=== PATIENT | male | born 1990 | race Caucasian/White ===

== ENCOUNTER 2016-12-27 08:53 | Emergency (ER) | payer OTHER ==
[~2016-12-27] VITALS: Ht 179.1 cm; Wt 103.0 kg
[~2016-12-27 08:53] MED LIST: IBUP-1050 PO
[2016-12-27 08:56] VITALS: TEMP 37; Ht 179.1 cm; Wt 103.0 kg
[2016-12-27] MEDS ORDERED: ONDANSETRON INJ 2 MG/ML 2 ML VIAL IV STA ×2 (09:08→10:02)
[2016-12-27] MEDS ORDERED: KETOROLAC TROMETHAMINE 30 MG/ML VIAL IV STA (09:08)
[2016-12-27] MEDS ORDERED: SODIUM CHLORIDE 0.9% 1000ML 1,000 ML IV STA (09:08)
[2016-12-27 09:25] LABS: BASO % 0.4 %; BASO ABS # 0.03 K/uL (0-0.2); COMPLETE YES; EOS % 0.8 %; HEMATOCRIT 49.5 % (42-52); IG% 0.5 %; LYMPH % 25.6 %; MEAN CELL VOLUME 87.6 fL (80-100); MEAN CORPUSCULAR HEMOGLOBIN 30.3 pg (25-34); MEAN CORPUSCULAR HGB CONC 34.5 g/dl (32-36); MONO % 9.7 %; PLATELET COUNT 251 K/uL (130-400); RED BLOOD COUNT 5.65 M/uL (4.7-6.1); WHITE BLOOD COUNT 7.81 K/uL (4.8-10.8)
[2016-12-27 09:43] LABS: BUN/CREATININE RATIO 15.3 (10-20); CALCIUM 9.4 mg/dl (8.5-10.1)
--- NOTE | 2016-12-27 10:39 | DIAGNOSTIC IMAGING REPORT ---
PA CHEST RADIOGRAPH AND UPRIGHT AND SUPINE AP RADIOGRAPHS OF THE ABDOMEN CLINICAL HISTORY: Left lower abdominal pain and cramping. Nausea. COMPARISON STUDY: No previous studies for comparison. FINDINGS: Lung volumes are normal. Lungs are clear. There is no pneumothorax or pleural effusion. Cardiac size is normal. Mediastinal contours are normal. There is no evidence of pulmonary edema. No free air is present. Bowel gas pattern is normal. A 2 mm left pelvic calcification is noted. Skeletal structures are unremarkable. IMPRESSION: 1. No free air or evidence of bowel obstruction. 2. 2 mm left pelvic calcification. Statistically, this represents a phlebolith although a distal left ureteral calculus could appear similar. 3. No acute cardiopulmonary findings. Electronically signed by: Primitivo Santoro M.D. 12/27/2016 10:38 AM Dictated Date/Time: 12/27/2016 10:36 AM
[2016-12-27 11:55] LABS: URINE APPEARANCE CLEAR (CLEAR); URINE BILIRUBIN NEG (NEG); URINE COLOR YELLOW; URINE EPITHELIAL CELL AUTO 0-5 /lpf (0-5); URINE NITRITE NEG (NEG); URINE SPECIFIC GRAVITY 1.018 (1.000-1.030); UROBILINOGEN NEG (NEG); ZZUR CULT IF INDIC CLEAN CATCH NO
[2016-12-27 12:07] LABS: MANUAL MICROSCOPIC REQUIRED? NO; REVIEW REQ? NO
--- NOTE | 2016-12-27 12:32 | DIAGNOSTIC IMAGING REPORT ---
CT OF THE ABDOMEN AND PELVIS WITHOUT CONTRAST CLINICAL HISTORY: Left lower quadrant abdominal pain. COMPARISON STUDY: Abdominal series and chest radiograph performed earlier today. TECHNIQUE: Axial images of the abdomen and pelvis were obtained without IV contrast. Images were reviewed in the axial, sagittal, and coronal planes. FINDINGS: No renal, ureteral or bladder calculi are present. There is no hydronephrosis or hydroureter. A left pelvic calcification represents a phlebolith. Evaluation of the remainder of the abdomen and pelvis is suboptimal on this unenhanced exam. Unenhanced images of liver, spleen, adrenal glands and pancreas are normal. There is no biliary or pancreatic ductal dilatation. There is no evidence for a bowel obstruction. The caliber of small and large bowel are normal. The appendix is normal. There is colonic diverticulosis without evidence for acute diverticulitis. There is no lymphadenopathy. Skeletal structures are unremarkable. IMPRESSION: 1. No urinary calculi or hydronephrosis. 2. No acute process within the abdomen or pelvis on unenhanced exam. 3. Colonic diverticulosis without evidence for acute diverticulitis. Electronically signed by: Priimtivo Santoro M.D. 12/27/2016 12:31 PM Dictated Date/Time: 12/27/2016 12:27 PM
[2016-12-27 12:43] VITALS: BP 129/74; PULSE 73; O2SAT 98
[2016-12-27] MEDS ORDERED: ONDA4TAB46 PO (13:03)
--- NOTE | 2016-12-27 14:32 | EMERGENCY ROOM VISIT NOTE ---
History Report prepared by Donaibangela: Gene Wild Under the Supervision of: Dr. Miguel A Sun D.O. First contact with patient: 08:59 Chief Complaint: ABDOMINAL PAIN Stated Complaint: ABD. CRAMPING/DISCOMFORT, NAUSEA X 3 DAYS Nursing Triage Summary: Pt states Friday he started feeling cramping in lower abdomen, got worse Friday and "has been consistent since then with flare ups on the left side...weird bowel habits and nausea the past few days." History of Present Illness The patient is a 26 year old male who presents to the Emergency Room with complaints of persistent lower abdominal cramping for the past three days. The pain intermittently intensifies in the left lower quadrant. The patient also complains of severe nausea without vomiting. The patient was constipated for three days until yesterday. Yesterday he had a painful bowel movement. He had relief initially which did not last. The patient had 4-5 episodes of diarrhea yesterday. He hasn't had a bowel movement this morning. The patient has not had any blood in his stools. The patient still has his gallbladder and appendix. He does not know of any sick contacts or contacts with C. Diff. The patient has not been on antibiotics recently. 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 He has not traveled recently or drank from any streams. The patient denies any family history of inflammatory bowel disease. Patient denies headache, change in vision, fevers, chest pain, shortness of breath, pain with urination, and melena. Source of History: patient Onset: three days Position: abdomen (lower) Quality: cramping Timing: other (persistent) Associated Symptoms: + diarrhea, + nausea, No SOB, No chest pain, No fevers , No headache, No hematochezia, No melena, No urinary symptoms, No vomiting Review of Systems See HPI for pertinent positives & negatives. A total of 10 systems reviewed and were otherwise negative. Past Medical & Surgical Medical Problems: (1) Back strain Family History No pertinent family history Social History Smoking Status: Current Every Day Smoker Occupation Status: employed Current/Historical Medications Scheduled PRN Ibuprofen (Advil), 800 MG PO Q4H PRN for Pain Ondansetron Hcl (Zofran), 4 MG PO TID PRN for Nausea Allergies Coded Allergies: No Known Allergies (Unverified , 12/27/16) Physical Exam Vital Signs Date Time Temp Pulse Resp B/P Pulse Ox O2 Delivery O2 Flow Rate FiO2 12/27/16 12:43 73 15 129/74 98 Room Air 12/27/16 10:55 76 14 145/79 99 Room Air 12/27/16 08:56 37.0 94 17 159/105 99 Room Air Physical Exam GENERAL: Sitting up in bed, alert, well appearing, well nourished, no distress, non-toxic EYE EXAM: normal conjunctiva. OROPHARYNX: no exudate, no erythema, lips, buccal mucosa, and tongue normal and mucous membranes are moist NECK: supple, no nuchal rigidity, no adenopathy, non-tender LUNGS: Clear to auscultation. Normal chest wall mechanics HEART: no murmurs, S1 normal and S2 normal ABDOMEN: abdomen soft, non-tender, normo-active bowel sounds, no masses, no rebound or guarding. BACK: Back is symmetrical on inspection and there is no deformity, no midline tenderness, no CVA tenderness. SKIN: no rashes and no bruising UPPER EXTREMITIES: upper extremities are grossly normal. LOWER EXTREMITIES: No pitting edema. NEURO EXAM: Normal sensorium, cranial nerves II-XII grossly intact, normal speech, no gross weakness of arms, no gross weakness of legs. Gross sensation intact. Medical Decision & Procedures ER Provider Diagnostic Interpretation: Xray results per the radiologist and my interpretation. Other results have been interpreted by the radiologist and reviewed by me. PA CHEST RADIOGRAPH AND UPRIGHT AND SUPINE AP RADIOGRAPHS OF THE ABDOMEN CLINICAL HISTORY: Left lower abdominal pain and cramping. Nausea. COMPARISON STUDY: No previous studies for comparison. FINDINGS: Lung volumes are normal. Lungs are clear. There is no pneumothorax or pleural effusion. Cardiac size is normal. Mediastinal contours are normal. There is no evidence of pulmonary edema. No free air is present. Bowel gas pattern is normal. A 2 mm left pelvic calcification is noted. Skeletal structures are unremarkable. IMPRESSION: 1. No free air or evidence of bowel obstruction. 2. 2 mm left pelvic calcification. Statistically, this represents a phlebolith although a distal left ureteral calculus could appear similar. 3. No acute cardiopulmonary findings. Electronically signed by: Primitivo Santoro M.D. 12/27/2016 10:38 AM Dictated Date/Time: 12/27/2016 10:[address] OF THE ABDOMEN AND PELVIS WITHOUT CONTRAST CLINICAL HISTORY: Left lower quadrant abdominal pain. COMPARISON STUDY: Abdominal series and chest radiograph performed earlier today. TECHNIQUE: Axial images of the abdomen and pelvis were obtained without IV contrast. Images were reviewed in the axial, sagittal, and coronal planes. FINDINGS: No renal, ureteral or bladder calculi are present. There is no hydronephrosis or hydroureter. A left pelvic calcification represents a phlebolith. Evaluation of the remainder of the abdomen and pelvis is suboptimal on this unenhanced exam. Unenhanced images of liver, spleen, adrenal glands and pancreas are normal. There is no biliary or pancreatic ductal dilatation. There is no evidence for a bowel obstruction. The caliber of small and large bowel are normal. The appendix is normal. There is colonic diverticulosis without evidence for acute diverticulitis. There is no lymphadenopathy. Skeletal structures are unremarkable. IMPRESSION: 1. No urinary calculi or hydronephrosis. 2. No acute process within the abdomen or pelvis on unenhanced exam. 3. Colonic diverticulosis without evidence for acute diverticulitis. Electronically signed by: Primitivo Santoro M.D. 12/27/2016 12:31 PM Dictated Date/Time: 12/27/2016 12:27 PM Laboratory Results 12/27/16 09:05 Red Blood Count 5.65, Mean Corpuscular Volume 87.6, Mean Corpuscular Hemoglobin 30.3, Mean Corpuscular Hemoglobin Concent 34.5, Mean Platelet Volume 10.0, Neutrophils (%) (Auto) 63.0, Lymphocytes (%) (Auto) 25.6, Monocytes (%) (Auto) 9.7, Eosinophils (%) (Auto) 0.8, Basophils (%) (Auto) 0.4, Neutrophils # (Auto) 4.92, Lymphocytes # (Auto) 2.00, Monocytes # (Auto) 0.76, Eosinophils # (Auto) 0.06, Basophils # (Auto) 0.03 12/27/16 09:05 Test 12/27/16 09:05 12/27/16 11:15 White Blood Count 7.81 K/uL (4.8-10.8) Red Blood Count 5.65 M/uL (4.7-6.1) Hemoglobin 17.1 g/dL (14.0-18.0) Hematocrit 49.5 % (42-52) Mean Corpuscular Volume 87.6 fL (80-100) Mean Corpuscular Hemoglobin 30.3 pg (25-34) Mean Corpuscular Hemoglobin Concent 34.5 g/dl (32-36) Platelet Count 251 K/uL (130-400) Mean Platelet Volume 10.0 fL (7.4-10.4) Neutrophils (%) (Auto) 63.0 % Lymphocytes (%) (Auto) 25.6 % Monocytes (%) (Auto) 9.7 % Eosinophils (%) (Auto) 0.8 % Basophils (%) (Auto) 0.4 % Neutrophils # (Auto) 4.92 K/uL (1.4-6.5) Lymphocytes # (Auto) 2.00 K/uL (1.2-3.4) Monocytes # (Auto) 0.76 K/uL (0.11-0.59) Eosinophils # (Auto) 0.06 K/uL (0-0.5) Basophils # (Auto) 0.03 K/uL (0-0.2) RDW Standard Deviation 41.4 fL (36.4-46.3) RDW Coefficient of Variation 13.0 % (11.5-14.5) Immature Granulocyte % (Auto) 0.5 % Immature Granulocyte # (Auto) 0.04 K/uL (0.00-0.02) Anion Gap 8.0 mmol/L (3-11) Est Creatinine Clear Calc Drug Dose 135.7 ml/min Estimated GFR () 119.9 Estimated GFR (Non- 103.4 BUN/Creatinine Ratio 15.3 (10-20) Calcium Level 9.4 mg/dl (8.5-10.1) Total Bilirubin 0.7 mg/dl (0.2-1) Direct Bilirubin 0.1 mg/dl (0-0.2) Aspartate Amino Transf (AST/SGOT) 13 U/L (15-37) Alanine Aminotransferase (ALT/SGPT) 36 U/L (12-78) Alkaline Phosphatase 86 U/L (45-117) Total Protein 7.8 gm/dl (6.4-8.2) Albumin 4.5 gm/dl (3.4-5.0) Lipase 144 U/L (73-393) Urine Color YELLOW Urine Appearance CLEAR (CLEAR) Urine pH 5.0 (4.5-7.5) Urine Specific [place] 1.018 (1.000-1.030) Urine Protein NEG (NEG) Urine Glucose (UA) NEG (NEG) Urine Ketones NEG (NEG) Urine Occult Blood NEG (NEG) Urine Nitrite NEG (NEG) Urine Bilirubin NEG (NEG) Urine Urobilinogen NEG (NEG) Urine Leukocyte Esterase NEG (NEG) Urine WBC (Auto) 0 /hpf (0-5) Urine RBC (Auto) 0-4 /hpf (0-4) Urine Hyaline Casts (Auto) 0 /lpf (0-5) Urine Epithelial Cells (Auto) 0-5 /lpf (0-5) Urine Bacteria (Auto) NEG (NEG) Laboratory results per my review. Medications Administered Medications (Trade) Dose Ordered Sig/Destinee Route Start Time Stop Time Status Last Admin Dose Admin Sodium Chloride (Nss 1000ml) 1,000 ml @ 999 mls/hr Q1H1M STAT IV 12/27/16 09:08 12/27/16 10:08 DC 12/27/16 09:18 999 MLS/HR Ondansetron HCl (Zofran Inj) 4 mg NOW STAT IV 12/27/16 09:08 12/27/16 09:09 DC 12/27/16 09:15 4 MG Ketorolac Tromethamine (Toradol Inj) 30 mg NOW STAT IV 12/27/16 09:08 12/27/16 09:09 DC 12/27/16 09:17 30 MG Ondansetron HCl (Zofran Inj) 4 mg NOW STAT IV 12/27/16 10:02 12/27/16 10:03 DC 12/27/16 10:27 4 MG ED Course ED COURSE: Vital signs were reviewed and were normal. The patients medical record was reviewed The above diagnostic studies were performed and reviewed. ED treatments and interventions as stated above. 0903: The patient was evaluated in room A11b. A complete history and physical examination was performed. 0908: Zofran 4 mg IV, NSS 1000 ml @ 999 mls/hr. 1002: Zofran 4 mg IV. 1150: The patient is feeling better. 1305: Upon reevaluation, the patient is ready for discharge.I discussed my findings with the patient and he understands and agrees with the treatment plan. Based on the patients age, coexisting illnesses, exam and lab findings the decision to treat as an outpatient was made. The patient remained stable while under my care. The patient appeared well at the time of discharge. Medical Decision Differential diagnoses includes but is not limited to gastritis, peptic ulcer disease, GERD, gallbladder disease, pancreatitis, small bowel obstruction, acute coronary syndrome, pericarditis, ischemic bowel, irritable bowel disease, irritable bowel syndrome, appendicitis, diverticulitis, malignancy, hernia, urinary tract infection, torsion, [/ectopic (if female)], perforation, trauma, infectious. Patient is a 26-year-old male who presents the ER for nausea associated with lower abdominal cramping with intermittent sharp stabbing pains in the left lower quadrant. Last bowel movement was yesterday. No fevers. No previous abdominal surgeries. No dysuria, urgency or frequency. Obstruction series was unremarkable with exception of a possible calcification in left lower quadrant. CBC along with BMP, LFTs, bilirubin and UA were negative. Urine dip did have trace blood. With the trace blood I did perform a CT of the abdomen and pelvis for concern for stone which was negative. Official UA was negative as well. Patient was given multiple doses Zofran and Toradol along with normal saline. He felt significant better. He is discharged with prescription for Zofran. I do believe that this is likely secondary to a viral GI bug. Discussed with Pt concerning signs and symptoms to watch out for. Pt was instructed to follow up with their PCP and discussed with the patient their option to return to the ED at anytime for persistent or worsening symptoms. The appropriate anticipatory guidance and out-patient management, including indications for return to the emergency department, were explained at length to the patient and understood. Impression Primary Impression: Lower abdominal pain Scribe Attestation The scribe's documentation has been prepared under my direction and personally reviewed by me in its entirety. I confirm that the note above accurately reflects all work, treatment, procedures, and medical decision making performed by me. Departure Information Dispostion Home / Self-Care Prescriptions Ondansetron Hcl (ZOFRAN) 4 Mg Tab 4 MG PO TID Y for Nausea, #20 TAB Prov: Miguel A 12/27/16 Referrals Sav Maravilla M.D. (PCP) Forms HOME CARE DOCUMENTATION FORM, IMPORTANT VISIT INFORMATION Patient Instructions Abdominal Pain - [facility], My [facility] Additional Instructions Please follow up with your primary care doctor with in the next 24 hours. Any worsening of your symptoms, please return to the ED immediately. This includes fevers greater than 100.4, worsening pain, persistent nausea vomiting, bloody stool, or any other concerning signs or symptoms from your stand point. Please take Zofran as needed for nausea.
== END 2016-12-27 13:11 | disposition home or self-care (01) ==
LOC: C.EDB 08:54 → C.EDA 13:11
DX: R10.30 Lower abdominal pain, unspecified (principal); F17.200 Nicotine dependence, unspecified, uncomplicated

== ENCOUNTER → 2017-04-01 | Outpatient (CLI) | payer OTHER ==
[~2017-04-01] MED LIST changes: +AMOX500C3 PO; +MELO15TA4 PO; +ONDA4TAB46 PO; +PARO1TAB27 PO; +PRLSR20 PO; +PRX/40 PO; +TRAM-10 PO
== END | disposition home or self-care (01) ==
LOC: C.LAB 17:09
PROVIDERS: ATTEND Family Medicine
DX: F41.1 Generalized anxiety disorder (principal)

== ENCOUNTER → 2017-06-20 | Outpatient (CLI) | payer OTHER ==
[2017-06-20 13:10] LABS: BASO % 0.2 %; BASO ABS # 0.02 K/uL (0-0.2); COMPLETE YES; IG% 0.3 %; LYMPH ABS # 2.66 K/uL (1.2-3.4); MEAN CELL VOLUME 88.8 fL (80-100); MEAN CORPUSCULAR HEMOGLOBIN 30.4 pg (25-34); MEAN CORPUSCULAR HGB CONC 34.3 g/dl (32-36); MEAN PLATELET VOLUME 9.6 fL (7.4-10.4); MONO % 8.7 %; NEUT % 58.8 %; PLATELET COUNT 231 K/uL (130-400); RED BLOOD COUNT 5.29 M/uL (4.7-6.1); WHITE BLOOD COUNT 8.58 K/uL (4.8-10.8)
[2017-06-20 13:41] LABS: BLOOD UREA NITROGEN 15 mg/dl (7-18); BUN/CREATININE RATIO 17.1 (10-20); CALCIUM 9.1 mg/dl (8.5-10.1); CARBON DIOXIDE 28 mmol/L (21-32); CHLORIDE 105 mmol/L (98-107); CREATININE 0.85 mg/dl (0.60-1.40); GLUCOSE 89 mg/dl (70-99); POTASSIUM 4.4 mmol/L (3.5-5.1); SODIUM 138 mmol/L (136-145)
== END | disposition home or self-care (01) ==
LOC: C.LAB 11:38
PROVIDERS: ATTEND Family Medicine
DX: G25.0 Essential tremor (principal)

== ENCOUNTER 2017-08-05 01:12 | Emergency (ER) | payer OTHER ==
[~2017-08-05] VITALS: Ht 180.3 cm; Wt 115.2 kg
[~2017-08-05 01:12] MED LIST changes: -AMOX500C3 PO; -MELO15TA4 PO; -ONDA4TAB46 PO; -PARO1TAB27 PO; -PRLSR20 PO; -PRX/40 PO; -TRAM-10 PO
[2017-08-05 01:19] VITALS: TEMP 36.7; Ht 180.3 cm; Wt 115.2 kg
[2017-08-05] MEDS ORDERED: AMOXICILLIN 250 MG CAP PO STA (01:30)
[2017-08-05] MEDS ORDERED: TRAMADOL HCL 50 MG HOME PACK PO ONE (01:30)
[2017-08-05] MEDS ORDERED: TRAM-10 PO (01:34)
[2017-08-05] MEDS ORDERED: AMOX500C3 PO (01:35)
[2017-08-05] MEDS ORDERED: PRX/40 PO (01:41)
[2017-08-05] MEDS ORDERED: MELO15TA4 PO (01:41)
[2017-08-05 01:46] VITALS: BP 138/96; PULSE 80; O2SAT 100
--- NOTE | 2017-08-05 01:49 | EMERGENCY ROOM VISIT NOTE ---
History First contact with patient: :22 Chief Complaint: DENTAL PAIN Stated Complaint: DENTAL/JAW PAIN X6 DAYS History of Present Illness The patient is a 27 year old male who presents to the Emergency Room with complaints of right lower dental pain that radiates to his jaw past few days. Patient also states he grinds his teeth. Patient is not seen a dentist in quite sometime. Pain currently 6 out of 10. Nothing makes it better or worse. He describes the pain as aching. It radiates to his jaw. He denies chest pain, dyspnea, fever, chills, headache, neck stiffness, sore throat, facial swelling, lightheadedness or dizziness. Review of Systems See HPI for pertinent positives & negatives. A total of 10 systems reviewed and were otherwise negative. Past Medical/Surgical History Medical Problems: (1) Back strain Arthritis Family History No pertinent family history Social History Smoking Status: Current Every Day Smoker Drug Use: none Occupation Status: employed Current/Historical Medications Scheduled Amoxicillin (Amoxil), 500 MG PO TID Meloxicam (Meloxicam), 15 MG PO DAILY Paroxetine (Paroxetine HCl), 40 MG PO DAILY Scheduled PRN Ibuprofen (Advil), 800 MG PO Q4H PRN for Pain Tramadol (Ultram), 1-2 TAB PO Q4H PRN for Pain Physical Exam Vital Signs Date Time Temp Pulse Resp B/P (MAP) Pulse Ox O2 Delivery O2 Flow Rate FiO2 08/05/17 01:19 36.7 80 18 171/80 100 Room Air Physical Exam VITALS: Vitals are noted on the nurse's note and reviewed by myself. Vital signs stable. GENERAL: Pleasant male, in no acute distress, nondiaphoretic, well-developed well-nourished. SKIN: The skin was without rashes, erythema, edema, or bruising. There is no tenting of the skin. Capillary reflex less than 2 seconds. HEAD: Normocephalic atraumatic. EARS: External auditory canals clear, tympanic membranes pearly valadez without erythema or effusion bilaterally. EYES: Pupils equal round and reactive to light and accommodation. Conjunctivae without injection, sclerae without icterus. Extraocular movements intact. NOSE: Patent, turbinates without inflammation or discharge. No sinus tenderness. MOUTH: Mucous membranes moist. No Lukas's angina Pharynx without erythema or exudate. Uvula midline. Airway patent. Tongue does not deviate. Dental exam: Dental decay to first molar right lower, no palpable abscess, overall dental hygiene fair. NECK: Supple without nuchal rigidity. No lymphadenopathy. No thyromegaly. Cervical spine is nontender. No JVD. No meningeal signs HEART: Regular rate and rhythm without murmurs gallops or rubs. LUNGS: Clear to auscultation bilaterally without wheezes, rales or rhonchi. No dullness to percussion. No retractions or accessory muscle use. MUSCULOSKELETAL: No muscle atrophy, erythema, or edema noted. NEURO: Patient was alert and oriented to person place and time. Normal sensation to light and sharp touch. No focal neurological deficits. Medical Decision & Procedures ED Course Prior records reviewed and summarized as above. Triage Nursing notes reviewed. Additional history obtained from friend The patient's history was concerning for dental pain Differential diagnosis: Etiologies such as cellulitis, abscess, gingivitis, dental caries, Bruxism, Lukas angina, tic douloureux as well as others were entertained.. Physical examination: The physical examination was consistent with dental pain from dental caries ER treatment provided: Amoxicillin, Ultram On reassessment the patient felt better. Diagnostics interpreted by me: Deferred This appears to be dental caries. Patient had no signs of abscess. No signs of Lukas angina. He is well-appearing. He was counseled on proper dental hygiene and verbalized understanding of this. He was advised to get a mouthguard for his bruxism and see a dentist as soon as possible. He is advised to return to the ER immediately for facial swelling, fevers, worsening signs or symptoms or as needed. By the evaluation outlined above emergent etiologies such as abscess, Lukas angina as well as others were deemed relatively unlikely. The pt informed about the findings as listed above. All questions were answered and pleased with the treatment. Return instructions were outlined and the patient was discharged in stable condition. Outpatient prescription management: Amoxicillin, Ultram Referral: The patient was referred back to dentist for follow-up in 2 to 3 days for a recheck of the current condition. Medical Decision As above [place] Drug Monitoring Program Search Results: patient reviewed within database, no issues identified Medication Reconcilliation Current Medication List: was personally reviewed by me Blood Pressure Screening Patient's blood pressure: Elevated blood pressure Blood pressure disposition: Elevated BP felt to be situational Impression Primary Impression: Tooth pain with chewing Additional Impressions: Dental caries Bruxism Departure Information Dispostion Home / Self-Care Condition GOOD Prescriptions Amoxicillin (AMOXIL) 500 Mg Cap 500 MG PO TID for 10 Days, #30 CAP Prov: Eva Park PA-C 08/05/17 Tramadol (Ultram) 50 Mg Tab 1-2 TAB PO Q4H Y for Pain, #14 TAB For Initial Treatment Prov: Eva Park PA-C 08/05/17 Forms HOME CARE DOCUMENTATION FORM, IMPORTANT VISIT INFORMATION Patient Instructions Bruxism Teeth Grind, [facility], ED [facility] Additional Instructions Amoxicillin 500mg: Take one pill 3 times daily for 10 days for your infection. All antibiotics can cause diarrhea. If this occurs and you feel worse or it does not resolve in 1-2 days follow up with your doctor or return to the Emergency Department as this could be signs of serious underlying problems. Any medication can cause an allergic reaction, stop the pills immediately and return to the ER for rash, hives, breathing difficulties, or swelling. Recommend that you wear a mouthguard at night. You can by this at [facility] or [facility]. Ultram 50 mg: Take 1-2 pills every four hours for breakthrough pain. Avoid alcohol, operating machinery or dangerous equipment, working on ladders or roofs , DRIVING, or situations where being under the influence may be dangerous. It is recommended to use an [id number] stool softener such as Colace, 100mg twice daily while taking this medication to avoid constipation. Ibuprofen(Motrin, Advil) may be used for fever or pain. Use 600mg every six hours as needed. Take with food. Avoid using more than 2400mg in a 24 hour period. Do not use 2400mg per day for more than three consecutive days without physician direction. Prolonged inappropriate use can lead to stomach upset or ulcers. This medication can be taken if you need to drive, work, or perform activities which may be dangerous when taking narcotic pain medication. (AND/OR) Acetaminophen(Tylenol) may be used for fever or pain. Use 1000mg every six hours as needed. Avoid using more than 3000mg in a 24 hour period. This medication can be taken if you need to drive, work, or perform activities which may be dangerous when taking narcotic pain medication. [place] teeth twice a day, floss daily and do warm saltwater gargles 3 times a day. See a dentist as soon as possible for definitive care for your dental problem. Return to ER sooner for facial swelling, fever, redness, worsening signs or symptoms or as needed. Problem Qualifiers
== END 2017-08-05 01:48 | disposition home or self-care (01) ==
LOC: C.EDB 01:13
DX: K02.9 Dental caries, unspecified (principal); K08.89 Other specified disorders of teeth and supporting structures; M19.90 Unspecified osteoarthritis, unspecified site; F17.200 Nicotine dependence, unspecified, uncomplicated; Z79.899 Other long term (current) drug therapy

== ENCOUNTER 2017-09-03 07:45 | Emergency (ER) | payer OTHER ==
[~2017-09-03] VITALS: Ht 1196.3 cm; Wt 118.3 kg
[~2017-09-03 07:45] MED LIST changes: +MELO15TA4 PO; +PRX/40 PO; +TRAM-10 PO
[2017-09-03 07:49] VITALS: BP 137/76; PULSE 91; TEMP 37; O2SAT 100; Ht 1196.3 cm; Wt 118.3 kg
[2017-09-03] MEDS ORDERED: PRLSR20 PO (07:55)
[2017-09-03] MEDS ORDERED: PARO1TAB27 PO (07:55)
[2017-09-03] MEDS ORDERED: PROPARACAINE HCL 0.5% OP SOLN 15 ML BTL ONE (08:10)
--- NOTE | 2017-09-03 08:25 | EMERGENCY ROOM VISIT NOTE ---
ED Visit Note First contact with patient: 07:55 CHIEF COMPLAINT: Left eye redness and swelling since yesterday HISTORY OF PRESENT ILLNESS: Patient is a 27-year-old white male who presents to emergency department for evaluation of left eye pain, redness and drainage. He does wear corrective lenses, almost always wears his contact lenses. While wearing contact lenses yesterday, he noticed that his eye felt a little bit irritating. He removed his contact lenses when he got home last evening. When he woke up this morning, he noted redness in the eye, ongoing sense of irritation, tearing and had some yellow crusting. He has been wearing his glasses since. He has no symptoms in the right eye. He has not been ill with any recent cold or upper respiratory symptoms. He denies any foreign body sensation. No activities recently where he could've gotten something into his eye. REVIEW OF SYSTEMS: Review of systems as per HPI. All other systems reviewed were negative. At least 6 systems reviewed. PMH: Electronic medical records are reviewed and summarized as above/below. See Problem List. SOCIAL HISTORY: Patient lives at home. Smoker. He is employed. PHYSICAL EXAM: Vital Signs: Reviewed Nurse's notes. VISUAL ACUITY: 20/40 in the right eye, 20/200 in the left eye with old prescription glasses. GENERAL: Patient is a well-appearing 27-year-old white male who is awake and alert and in no acute distress. EYES: The pupils are round, equal, and react to light. EOMs are full. There is clear tearing from the left eye, which showed moderate conjunctival injection and inflammation. No chemosis. No foreign body was seen embedded in the cornea. The cornea was clear and no hyphema was seen. There was a small, linear area of fluorescein uptake central over the pupil. EMERGENCY DEPARTMENT COURSE: The patient was seen and examined as above. I was anesthetized with proparacaine drops to facilitate exam. He has some mild conjunctival injection and discharge, but does also have evidence for a small central corneal abrasion. Patient will be treated with Ciloxan drops, these were applied here in the emergency department. He was encouraged to wear his glasses for the next 3-5 days until his symptoms resolve. He was encouraged to come back to the emergency department to have diuresis sustained in 24-48 hours , certainly return sooner for any worsening symptoms. Differential diagnoses entertained included corneal foreign body, conjunctivitis , corneal abrasion, punctate keratitis, among others. Medication reconciliation: I attest that I have personally reviewed the patient' s current medication list. Blood pressure screening : Patient was found to have normal blood pressure on screening and does not require follow-up. Problem List Medical Problems: (1) Abdominal pain Status: Resolved (2) Back strain Status: Resolved (3) Bruxism Status: Chronic (4) Dental caries Status: Resolved (5) Generalized Anxiety Disorder Status: Chronic (6) Lower abdominal pain Status: Resolved (7) Tooth pain with chewing Status: Resolved Current/Historical Medications Scheduled Omeprazole (Prilosec), 20 MG PO DAILY Miscellaneous Medications Paroxetine (Paxil), 60 MG PO Allergies Coded Allergies: Buspirone (Verified Allergy, Intermediate, altered mental status, 09/03/17) Vital Signs Date Time Temp Pulse Resp B/P (MAP) Pulse Ox O2 Delivery O2 Flow Rate FiO2 09/03/17 07:49 37.0 91 18 137/76 100 Room Air Medications Administered Medications (Trade) Dose Ordered Sig/Destinee Route Start Time Stop Time Status Last Admin Dose Admin Ciprofloxacin HCl (Ciprofloxacin 0.3% Op Soln) 2 drops Q4H ONCE OP 09/03/17 08:30 09/03/17 08:31 DC 09/03/17 08:35 2 DROPS Departure Information Impression Primary Impression: Corneal abrasion, left Referrals Sav Maravilla M.D. (PCP) Patient Instructions My [facility] Additional Instructions 2 antibiotic eyedrops to the left eye every 4 hrs (while awake) for 5 days. Ibuprofen(Motrin, Advil) may be used for fever or pain. Use 600mg every six hours as needed. Take with food. Avoid using more than 2400mg in a 24 hour period. Do not use 2400mg per day for more than three consecutive days without physician direction. Prolonged inappropriate use can lead to stomach upset or ulcers. (AND/OR) Acetaminophen(Tylenol) may be used for fever or pain. Use 1000mg every six hours as needed. Avoid using more than 3000mg in a 24 hour period. You may also intermittently apply a cool compress and wear sunglasses for additional relief. If you wear contacts, no contact lens use for 5-7 days. Start with all-new contact lenses, solution, rewetting drops and cosmetics. Follow-up with your eye doctor if no improvement within 36-48 hrs. Return to the ED for worsening pain or changes in vision.
[2017-09-03] MEDS ORDERED: CIPROFLOXACIN HCL 0.3% OP SOLN 2.5 ML BTL OP ONE (08:30)
== END 2017-09-03 08:36 | disposition home or self-care (01) ==
LOC: C.EDB 07:46
DX: S05.02XA Injury of conjunctiva and corneal abrasion without foreign body, left eye, initial encounter (principal); X58.XXXA Exposure to other specified factors, initial encounter

== ENCOUNTER 2017-12-24 01:31 | Emergency (ER) | payer OTHER ==
[~2017-12-24] VITALS: Ht 180.3 cm; Wt 119.8 kg
[~2017-12-24 01:31] MED LIST changes: -IBUP-1050 PO; -MELO15TA4 PO; +PARO1TAB27 PO; +PRLSR20 PO; -PRX/40 PO; -TRAM-10 PO
[2017-12-24 01:39] VITALS: TEMP 36.7; Ht 180.3 cm; Wt 119.8 kg
[2017-12-24] MEDS ORDERED: CEPHALEXIN 500MG HOME PACK 1 EA BTL PO ONE (02:00)
[2017-12-24] MEDS ORDERED: OXYCODONE IR HOME PACK PO ONE (02:00)
[2017-12-24] MEDS ORDERED: XYLOCAINE 1%/SOD BICARB 20 ML VIAL INFIL ONE (02:00)
[2017-12-24] MEDS ORDERED: CEPH500C2 PO (02:44)
[2017-12-24 02:54] VITALS: BP 150/89; PULSE 90; O2SAT 100
--- NOTE | 2017-12-24 03:30 | EMERGENCY ROOM VISIT NOTE ---
ED Visit Note First contact with patient: 01:44 CHIEF COMPLAINT: Toe infection HISTORY OF PRESENT ILLNESS: This 27-year-old patient presents to the emergency department complaining of pain and swelling of the great toe for the past few days. Doesn't remember any injury to the area before it got swollen and tender. The patient has not had a fever. There has been no discharge. The patient has tried warm soaks. The patient's tetanus shot is up-to-date. REVIEW OF SYSTEMS: A 6 system review of systems was completed with positives and pertinent negatives listed in the HPI. ALLERGIES: BuSpar MEDICATIONS: Reviewed PMH: Medical Problems: (1) Abdominal pain Status: Resolved (2) Back strain Status: Resolved (3) Bruxism Status: Chronic (4) Dental caries Status: Resolved (5) Generalized Anxiety Disorder Status: Chronic (6) Lower abdominal pain Status: Resolved (7) Tooth pain with chewing Status: Resolved SOCIAL HISTORY: No drug use. PHYSICAL EXAM: Vital Signs: Reviewed Nurse's notes, temperature afebrile orally , vital signs stable. GENERAL: Pleasant male, in no acute distress, nontoxic in appearance, well-developed, well-nourished. SKIN: There is erythema, swelling, and tenderness of the nail fold around the left great toe. There is fluctuance without drainage. There is no pus under the nail. There is no lymphangitic streaking up the hand. Capillary refill less than two seconds. MUSCULOSKELETAL: The patient has full range of motion and strength of the toe. Peripheral pulses 2+. ED COURSE: I examined the patient. The area of fluctuance of the left great toe was cleaned with Betadine. Digital Block Indication: toe infection Verbal consent obtained. Risks and benefits were explained with the usual customary discussion. A time out was taken. The skin was prepped with Betadine. Using sterile technique, 2 mL's of lidocaine was injected into the base of the left great toe. No complications. The patient tolerated the procedure well. An 11 blade was then used to make a 1 cm incision to drain the paronychia. A large amount of purulent pus was expressed. More was expressed with pressure until all of the pus was relieved. The area was thoroughly cleaned with sterile saline. The area was then dressed with bacitracin and a bandage. Patient was instructed on the use of crutches and placed in a postop shoe. The patient tolerated the procedure well. He was advised to follow-up with family care in a day or 2 and to continue Epsom salts soaks. He was advised to take antibiotics as directed. He is advised to return to the ER immediately for fevers, spreading infection, worsening signs or symptoms or as needed. Patient was able to flex and extend the toe. He had no lymphangitis. The patient was discharged home in stable condition. DIAGNOSIS: Ingrown toenail of the Left great toe with infection DISCHARGE INSTRUCTIONS: As below Problem List Medical Problems: (1) Abdominal pain Status: Resolved (2) Back strain Status: Resolved (3) Bruxism Status: Chronic (4) Dental caries Status: Resolved (5) Generalized Anxiety Disorder Status: Chronic (6) Lower abdominal pain Status: Resolved (7) Tooth pain with chewing Status: Resolved Current/Historical Medications Scheduled Cephalexin Monohydrate (Keflex), 500 MG PO QID Omeprazole (Prilosec), 20 MG PO DAILY Miscellaneous Medications Paroxetine (Paxil), 60 MG PO Allergies Coded Allergies: Buspirone (Verified Allergy, Intermediate, altered mental status, 09/03/17) Vital Signs Date Time Temp Pulse Resp B/P (MAP) Pulse Ox O2 Delivery O2 Flow Rate FiO2 12/24/17 02:54 90 18 150/89 100 Room Air 12/24/17 01:39 36.7 86 18 146/89 99 Room Air Medications Administered Medications (Trade) Dose Ordered Sig/Destinee Route Start Time Stop Time Status Last Admin Dose Admin Cephalexin Monohydrate (Keflex 500MG Home Pack) 1 homepack NOW ONCE PO 12/24/17 02:00 12/24/17 02:01 DC 12/24/17 01:55 1 HOMEPACK Oxycodone HCl (Roxicodone Immediate Rel 5MG Home Pack) 1 homepack UD ONCE PO 12/24/17 02:00 12/24/17 02:01 DC 12/24/17 01:55 1 HOMEPACK Departure Information Impression Primary Impression: Ingrown toenail of left foot with infection Dispostion Home / Self-Care Condition GOOD Prescriptions Cephalexin Monohydrate (KEFLEX) 500 Mg Cap 500 MG PO QID for 9 Days, #36 CAP Prov: Eva Park ., ZAK 12/24/17 Forms WORK / SCHOOL INSTRUCTIONS, HOME CARE DOCUMENTATION FORM, Days off work : 2 Work Instructions, IMPORTANT VISIT INFORMATION Patient Instructions My [facility], ED Toenail Ingrown Infec Abx Onl Additional Instructions Wear postop shoe and use crutches as instructed. Bacitracin and bandage daily until infection heals. Cephalexin(Keflex) 500mg: Take one pill four times daily for 10 days for your infection. All antibiotics can cause diarrhea. If this occurs and you feel worse or it does not resolve in 1-2 days follow up with your doctor or return to the Emergency Department as this could be signs of serious underlying problems. Any medication can cause an allergic reaction, stop the pills immediately and return to the ER for rash, hives, breathing difficulties, or swelling. Ibuprofen(Motrin, Advil) may be used for fever or pain. Use 600mg every six hours as needed. Take with food. Avoid using more than 2400mg in a 24 hour period. Do not use 2400mg per day for more than three consecutive days without physician direction. Prolonged inappropriate use can lead to stomach upset or ulcers. (AND/OR) Acetaminophen(Tylenol) may be used for fever or pain. Use 1000mg every six hours as needed. Avoid using more than 3000mg in a 24 hour period. Epsom salt soaks 3 times a day Rest and drink plenty of fluids. Continue current medications. Return to the ER for severe pain, persistent fevers, spreading redness, or any worsening of your condition. Follow up with your primary physician within 2-3 days for a recheck of the current condition.
== END 2017-12-24 02:50 | disposition home or self-care (01) ==
LOC: C.EDB 01:32
DX: L60.0 Ingrowing nail (principal); L08.9 Local infection of the skin and subcutaneous tissue, unspecified; F41.1 Generalized anxiety disorder

== ENCOUNTER 2018-03-23 09:33 | Emergency (ER) | payer OTHER ==
[2018-03-23 09:53] VITALS: TEMP 37.5
[2018-03-23] MEDS ORDERED: LORAZEPAM 1 MG TAB SL STA (10:06)
[2018-03-23] MEDS ORDERED: ATV/1 PO (10:09)
--- NOTE | 2018-03-23 10:23 | EMERGENCY ROOM VISIT NOTE ---
ED Visit Note First contact with patient: 09:45 CHIEF COMPLAINT: Requesting a dose of Ativan for anxiety HISTORY OF PRESENT ILLNESS: Patient is a 27-year-old male with past medical history significant for anxiety who presents the emergency department requesting a dose of Ativan. He has a long-standing history of anxiety and is under the care of Dr. Maravilla, his PCP for his anxiety disorder. Patient states that he began to feel jittery and anxious about 90 minutes ago. He tried using some coping techniques including breathing exercises, but he is unable to get himself settled down. He is prescribed Ativan 1 mg tablets, but states that he does not have any here with him at work, and he is requesting a dose for his symptoms. He states that his symptoms are consistent with his prior anxiety attacks. He denies any chest pain, palpitations or shortness of breath. He is declining any additional workup. PMH: Electronic medical records are reviewed and summarized as above/below. See Problem List. SOCIAL HISTORY: Patient lives at home with his significant other. Smoker. PHYSICAL EXAM: Vital Signs: Reviewed Nurse's notes CONSTITUTIONAL: Patient is a/, slightly anxious appearing 27-year-old male who is awake and alert and in mild distress due to his stated complaint. Blood pressures were noted to be elevated. HEART: Regular rate and rhythm. LUNGS: Clear to auscultation. ED course: Patient was given Ativan 1 mg sublingually, then discharged. He reports that he has an appointment with his doctor within the week for recheck. The patient is declining any additional workup to assess for any type of cardiac, metabolic or endocrinologic disorder. He was discharged in stable condition. Medication reconciliation: I attest that I have personally reviewed the patient' s current medication list. Blood pressure screening: Patient was found to have a slightly elevated blood pressure due to circumstances. I do not believe that the patient requires hypertension monitoring. Problem List Medical Problems: (1) Abdominal pain Status: Resolved (2) Back strain Status: Resolved (3) Bruxism Status: Chronic (4) Corneal abrasion, left Status: Resolved (5) Dental caries Status: Resolved (6) Generalized Anxiety Disorder Status: Chronic (7) GERD (gastroesophageal reflux disease) Status: Chronic (8) Hypertension Status: Chronic (9) Ingrown toenail of left foot with infection Status: Resolved (10) Lower abdominal pain Status: Resolved (11) Tooth pain with chewing Status: Resolved Current/Historical Medications Scheduled Omeprazole (Prilosec), 20 MG PO DAILY Paroxetine (Paxil), 60 MG PO DAILY Scheduled PRN Lorazepam (Ativan), 1 MG PO TID PRN for Anxiety Allergies Coded Allergies: Buspirone (Verified Allergy, Intermediate, altered mental status, 03/23/18) Vital Signs Date Time Temp Pulse Resp B/P (MAP) Pulse Ox O2 Delivery O2 Flow Rate FiO2 03/23/18 10:37 96 22 178/92 96 03/23/18 09:53 37.5 99 20 175/100 96 Room Air Medications Administered Medications (Trade) Dose Ordered Sig/Destinee Route Start Time Stop Time Status Last Admin Dose Admin Lorazepam (Ativan Tab) 1 mg NOW STAT SL 03/23/18 10:06 03/23/18 10:07 DC 03/23/18 10:17 1 MG Departure Information Impression Primary Impression: Acute anxiety Referrals Sav Maravilla M.D. (PCP) Patient Instructions My [facility] Additional Instructions DO NOT drive, drink alcohol, operate machinery, or perform dangerous activities today. You were given medications in the ER that can affect your ability to safely function or operate a vehicle. Continue your current medications. Return to the ER as needed. Follow up with your primary care physician as you have scheduled.
[2018-03-23 10:37] VITALS: BP 178/92; PULSE 96; O2SAT 96
== END 2018-03-23 10:40 | disposition home or self-care (01) ==
LOC: C.EDB 09:34 → C.EDA 10:40
DX: F41.9 Anxiety disorder, unspecified (principal); F17.200 Nicotine dependence, unspecified, uncomplicated; K21.9 Gastro-esophageal reflux disease without esophagitis; I10 Essential (primary) hypertension; Z88.8 Allergy status to other drugs, medicaments and biological substances

== ENCOUNTER → 2018-04-21 | Outpatient (CLI) | payer OTHER ==
[~2018-04-21] MED LIST changes: +ATV/1 PO
== END | disposition home or self-care (01) ==
LOC: C.LAB 07:41
PROVIDERS: ATTEND Family Medicine
DX: Z13.1 Encounter for screening for diabetes mellitus (principal); Z13.220 Encounter for screening for lipoid disorders; K58.0 Irritable bowel syndrome with diarrhea